=== PATIENT | female | born 1960 | race Caucasian/White ===

== ENCOUNTER 2018-02-13 22:44 | Emergency (ER) | payer MEDICAID ==
[2018-02-13 22:53] VITALS: TEMP 98.3; O2SAT 99
[2018-02-13 23:44] LABS: BASO % 0.4 % (0.0-2.0); EOS # 0.1 K/uL (0.0-0.7); EOS % 1.7 % (0.0-4.0); HEMOGLOBIN 11.9 g/dL (12.0-16.0); LYMPH # 2.6 K/uL (1.0-4.3); LYMPH % 48.4 % (20.0-40.0); MEAN CELL VOLUME 85.1 fl (81.0-99.0); MEAN CORPUSCULAR HEMOGLOBIN 28.5 pg (27.0-31.0); MEAN CORPUSCULAR HGB CONC 33.5 g/dL (33.0-37.0); MONO # 0.4 K/uL (0.0-0.8); MONO % 7.2 % (0.0-10.0); NEUT # 2.3 K/uL (1.8-7.0); NEUT % 42.3 % (50.0-75.0); NRBC % 0.1 % (0.0-0.0); RBC 4.18 Mil/uL (3.80-5.20); RED CELL DISTRIBUTION WIDTH 12.6 % (11.5-14.5); WHITE BLOOD COUNT 5.5 K/uL (4.8-10.8)
[2018-02-13 23:53] LABS: BLOOD UREA NITROGEN 11 mg/dl (7-17); CALCIUM 9.3 mg/dL (8.4-10.2); GFR AFRICAN-AMERICAN > 60; GFR NON-AFRICAN AMERICAN > 60
--- NOTE | 2018-02-13 23:57 | ED PDOC ---
HPI: Chest Pain Time Seen by Provider: 02/13/18 22:56 Chief Complaint (Nursing): Chest Pain Chief Complaint (Provider): Chest Pain History Per: Patient History/Exam Limitations: no limitations Onset/Duration Of Symptoms: Mins (30 minutes), Intermittent Episodes (x 6 months ) Current Symptoms Are (Timing): Still Present Quality: "Pain" Associated Symptoms: denies: Nausea Additional Complaint(s): 57 year old female with a history of HTN and high cholesterol presents to the ED with left sided chest pain that radiates to left arm associated with the sensation of palpations for 30 minutes. Patient is accompanied by her son. She reports intermittent episodes of similar symptoms for the last 6 months associated with feelings of anxiety and dizziness, Patient was told in the past that she has high blood pressure, but takes no medications to manage it. Upon further questioning, she states that she is in emotional distress. Patient is unwilling to admit further details. Denies shortness of breath, chills, nausea, vomiting, headache, calf tenderness, pedal edema. PMD: Dr. Raymond Rainey Past Medical History Reviewed: Historical Data, Nursing Documentation, Vital Signs Vital Signs: Last Vital Signs Temp 98.3 F 02/13/18 22:44 Pulse 90 02/13/18 23:35 Resp 17 02/13/18 23:35 BP 142/83 02/13/18 23:35 Pulse Ox 99 02/14/18 00:46 - Medical History PMH: Hypercholesterolemia - Surgical History Surgical History: No Surg Hx - Family History Family History: States: Unknown Family Hx - Social History Current smoker - smoking cessation education provided: No Alcohol: None Drugs: Denies - Allergies Allergies/Adverse Reactions: Allergies Allergy/AdvReac Type Severity Reaction Status Date / Time No Known Allergies Allergy Verified 02/13/18 22:44 Review of Systems ROS Statement: Except As Marked, All Systems Reviewed And Found Negative Constitutional: Negative for: Fever, Chills Eyes: Negative for: Vision Change Cardiovascular: Positive for: Chest Pain, Palpitations Respiratory: Negative for: Shortness of Breath Musculoskeletal: Positive for: Arm Pain (left sided; radiates from chest ) Physical Exam - Physical Exam Comments: GENERAL APPEARANCE: Patient is awake, alert, oriented x 3, in no acute distress , tearful. SKIN: Warm, dry; (-) cyanosis. EYES: (-) conjunctival pallor. ENMT: Mucous membranes moist. NECK: (-) tenderness, (-) stiffness, (-) lymphadenopathy, (-) JVD. CHEST AND RESPIRATORY: (-) rash, (-) chest wall tenderness. Lungs: (-) rales , (-) rhonchi, (-) wheezes, (-) rub; breath sounds equal bilaterally. HEART AND CARDIOVASCULAR: (-) irregularity; (-) murmur, (-) gallop, (-) rub. ABDOMEN AND GI: Soft; (-) distention, (-) tenderness, (-) palpable pulsatile mass. EXTREMITIES: (-) deformity; (-) edema, (-) calf tenderness. (+) distal pulses. NEURO AND PSYCH: Mental status as above. Cranial nerves grossly intact; strength symmetric. - Laboratory Results Result Diagrams: 02/13/18 23:30 02/13/18 23:30 - ECG O2 Sat by Pulse Oximetry: 99 (RA) Pulse Ox Interpretation: Normal Medical Decision Making Medical Decision Makin:05 Impression: chest pain, probable anxiety Initial Plan: --EKG --BMP --Troponin I --CBC --CXR --Antivert 25 mg PO --Patient was offered the opportunity to speak to crisis, which she declined. CXR: reviewed and is normal. Patient notified a Radiologist will review the ED reading if any change in treatment is needed we will contact her 0020 CBC and CMP unremarkable. Troponin < 0.01. 0050 Repeat BP: 142/83 Repeat HR: 90 On re-evaluation, patient reports improvement of symptoms. On exam, patient remains AAOx3, in no acute distress. Lungs clear to auscultation, cardiac RRR, abdomen soft, non-tender, repeat neuro exam shows no focal findings. Vitals stable. Lab/Diagnostic results d/w the patient in great detail. Diagnosis of chest pain , anxiety d/w the patient. Based on history, exam and diagnostic results, plan will be for outpatient follow up. Patient instructed to follow-up with pmd / referral provided / the clinic in 1- 2 days without fail. Advised to take medication as prescribed. Return to the emergency room at any time for any new or worsening symptoms. Patient states she fully agrees with and understands discharge instructions. States that she agrees with the plan and disposition. Verbalized and repeated discharge instructions and plan. I have given the patient opportunity to ask any additional questions. Scribe Attestation: Documented by Rachele Mercado, acting as a scribe for Katie Menendez MD Provider Scribe Attestation: All medical record entries made by the Scribe were at my direction and personally dictated by me. I have reviewed the chart and agree that the record accurately reflects my personal performance of the history, physical exam, medical decision making, and the department course for this patient. I have also personally directed, reviewed, and agree with the discharge instructions and disposition. Disposition - Clinical Impression Clinical Impression: Chest pain, Anxiety - Patient ED Disposition Is Patient to be Admitted: No Counseled Patient/Family Regarding: Studies Performed, Diagnosis, Need For Followup, Rx Given - Disposition Referrals: Raymond Rainey MD [Family Provider] - Disposition: Routine/Home Disposition Time: 00:50 Condition: STABLE Additional Instructions: La atencin mdica de emergencia que recibi hoy estaba dirigida a roro sntomas agudos. Si le prescribieron algn medicamento, llnelo y tome segn las indicaciones. Roro sntomas pueden tardar varios underwood en resolverse. Regrese al Departamento de Emergencia si roro sntomas empeoran, no mejoran o si tiene alg n otro problema. Comunquese con long mdico en 2 underwood para maday reevaluacin y seguimiento / o llame a sushma de los mdicos / clnicas a los que collier referido y que figura en el formulario de Informacin de visitas del paciente que se incluye en long paquete de nancy. Traiga todos los documentos que recibi al momento del nancy junto con los medicamentos que est tomando en long visita de seguimiento. Nuestro tratamiento no puede reemplazar la atencin mdica en curso por parte de un proveedor de atencin primaria (PCP) fuera del departamento de emergencias. Instructions: Anxiety, Adult (DC), Chest Pain That Is Not Caused by the Heart ( DC) Forms: [employer] (Omani) Print Language: EMIRATI - POA Present On Arrival: None Results - Lab Results Lab Results: 02/13/18 02/13/18 23:30 23:30 WBC 5.5 RBC 4.18 Hgb 11.9 L Hct 35.5 MCV 85.1 MCH 28.5 MCHC 33.5 RDW 12.6 Plt Count 253 MPV 8.0 Neut % (Auto) 42.3 L Lymph % (Auto) 48.4 H [place]cl[place] % (Auto) 7.2 Eos % (Auto) 1.7 Baso % (Auto) 0.4 Neut # (Auto) 2.3 Lymph # (Auto) 2.6 [place] # (Auto) 0.4 Eos # (Auto) 0.1 Baso # (Auto) 0.0 Sodium 139 Potassium 3.6 Chloride 104 Carbon Dioxide 26 Anion Gap 13 BUN 11 Creatinine 0.6 L Est GFR ( Amer) > 60 Est GFR (Non-Af Amer) > 60 Random Glucose 145 H Calcium 9.3 Troponin I < 0.0120
[2018-02-14 00:32] VITALS: BP 142/83; PULSE 90; RESP 17
--- NOTE | 2018-02-14 09:18 | CARD ---
APPROVED REPORT Date of service: 02/13/2018 <Conclusion> Normal sinus rhythm Normal ECG
--- NOTE | 2018-02-14 12:15 | RAD ---
Date of service: 02/13/2018 HISTORY: SOB, Chest Pain COMPARISON: 01/06/2017 TECHNIQUE: Chest PA and lateral FINDINGS: LUNGS: No active pulmonary disease. PLEURA: No significant pleural effusion identified. No pneumothorax apparent. CARDIOVASCULAR: Normal. OSSEOUS STRUCTURES: No significant abnormalities. VISUALIZED UPPER ABDOMEN: Normal. OTHER FINDINGS: None. IMPRESSION: No active disease.
== END 2018-02-14 00:53 | disposition home or self-care (01) ==
LOC: H.ER 22:44
DX: R07.9 Chest pain, unspecified (principal); F41.9 Anxiety disorder, unspecified; E78.00 Pure hypercholesterolemia, unspecified; I10 Essential (primary) hypertension

== ENCOUNTER 2018-02-14 03:12 | Observation (INO) | payer SELFPAY ==
[2018-02-14 05:09] LABS: BASO % 0.7 % (0.0-2.0); EOS % 0.4 % (0.0-4.0); HEMOGLOBIN 12.6 g/dL (12.0-16.0); LYMPH # 1.7 K/uL (1.0-4.3); MEAN CELL VOLUME 85.2 fl (81.0-99.0); MEAN CORPUSCULAR HEMOGLOBIN 28.7 pg (27.0-31.0); MEAN CORPUSCULAR HGB CONC 33.7 g/dL (33.0-37.0); MEAN PLATELET VOLUME 8.3 fl (7.2-11.7); MONO # 0.4 K/uL (0.0-0.8); MONO % 5.8 % (0.0-10.0); NEUT # 4.2 K/uL (1.8-7.0); NEUT % 66.1 % (50.0-75.0); RBC 4.38 Mil/uL (3.80-5.20); RED CELL DISTRIBUTION WIDTH 12.6 % (11.5-14.5); WHITE BLOOD COUNT 6.3 K/uL (4.8-10.8)
[2018-02-14 05:20] LABS: BLOOD UREA NITROGEN 11 mg/dl (7-17); CALCIUM 9.5 mg/dL (8.4-10.2); GFR AFRICAN-AMERICAN > 60; GFR NON-AFRICAN AMERICAN > 60
--- NOTE | 2018-02-14 05:31 | ED PDOC ---
HPI: Chest Pain Time Seen by Provider: 02/14/18 03:49 Chief Complaint (Nursing): Chest Pain Chief Complaint (Provider): Chest Pain History Per: Patient History/Exam Limitations: no limitations Onset/Duration Of Symptoms: Days (x 1) Current Symptoms Are (Timing): Still Present Quality: "Pain" Additional Complaint(s): 57 year old female with a history of HTN and high cholesterol presents to the ED with left sided chest pain. Patient was seen in the ED today with the same symptoms and was discharged. Offers no complaints. Denies shortness of breath, chills, nausea, vomiting, headache, calf tenderness, pedal edema. PMD: Dr. Rainey Past Medical History Reviewed: Historical Data, Nursing Documentation, Vital Signs Vital Signs: Last Vital Signs Temp 97.9 F 02/15/18 00:23 Pulse 85 02/15/18 00:23 Resp 18 02/15/18 00:23 BP 134/77 02/15/18 00:23 Pulse Ox 98 02/15/18 00:23 - Medical History PMH: Anxiety, Hypercholesterolemia - Surgical History Surgical History: No Surg Hx - Family History Family History: States: Unknown Family Hx - Home Medications Home Medications: Ambulatory Orders Medication Instructions Recorded Acetaminophen/Oxycodone Hydr 1 tab PO Q6 PRN 02/14/18 [Percocet 10/325 mg Tab] Alprazolam [Xanax] 0.5 mg PO PRN PRN 02/14/18 - Allergies Allergies/Adverse Reactions: Allergies Allergy/AdvReac Type Severity Reaction Status Date / Time No Known Allergies Allergy Verified 02/13/18 22:44 DERRICK Risk Score for UA/NSTEMI - DERRICK Risk Score Age > 64: NO 3 or more CAD Risk Factors: NO Known CAD (Stenosis greater than 50%): NO Aspirin use in past 7 days: NO Severe Angina: YES EKG ST changes greater than 0.5mm: NO Positive Cardiac Marker: NO DERRICK Score: 1 Risk %: 5% Wells Criteria for PE - Wells Criteria for Pulmonary Embolism Clinical Signs and Symptoms of DVT: No P.E is #1 Diagnosis, or Equally Likely: No Heart Rate >100: No Immobilization at least 3 days;Surgery previous 4 weeks: No Previous, objectively diagnosed PE or DVT: No Hemoptysis: No Malignancy w/treatment within 6 months, or palliative: No Total Score: 0 Review of Systems ROS Statement: Except As Marked, All Systems Reviewed And Found Negative Cardiovascular: Positive for: Chest Pain Physical Exam - Reviewed Nursing Documentation Reviewed: Yes Vital Signs Reviewed: Yes - Physical Exam Appears: Positive for: Non-toxic, No Acute Distress Head Exam: Positive for: ATRAUMATIC, NORMAL INSPECTION, NORMOCEPHALIC Skin: Positive for: Normal Color, Warm, Dry Eye Exam: Positive for: EOMI, Normal appearance, PERRL Neck: Positive for: Normal, Painless ROM, Supple Cardiovascular/Chest: Positive for: Regular Rate, Rhythm. Negative for: Murmur Respiratory: Positive for: Normal Breath Sounds. Negative for: Wheezing, Respiratory Distress Gastrointestinal/Abdominal: Positive for: Normal Exam, Soft. Negative for: Tenderness Extremity: Positive for: Normal ROM. Negative for: Deformity Neurologic/Psych: Positive for: Alert, Oriented (x 3]). Negative for: Motor/ Sensory Deficits - Laboratory Results Result Diagrams: 02/14/18 10:25 02/14/18 11:50 - ECG ECG: Positive for: Interpreted By Me, Viewed By Me ECG Rhythm: Positive for: Normal QRS, Normal ST Segment, Sinus Rhythm, Nonspecific Changes O2 Sat by Pulse Oximetry: 100 Medical Decision Making Medical Decision Makin:33 Impression: Initial Plan: --EKG --BMP --Troponin I --CBC --ASA 325 mg PO --Xanax .25mg PO EKG: NSR, normal QRS, no ST changes rate 84. Scribe Attestation: Documented by Rachele Mercado, acting as a scribe for Antonia Russell PA-C Provider Scribe Attestation: All medical record entries made by the Scribe were at my direction and personally dictated by me. I have reviewed the chart and agree that the record accurately reflects my personal performance of the history, physical exam, medical decision making, and the department course for this patient. I have also personally directed, reviewed, and agree with the discharge instructions and disposition. Disposition - Clinical Impression Clinical Impression: Chest pain, Anxiety - Patient ED Disposition Is Patient to be Admitted: Yes Discussed With : Raymond Rainey Doctor Will See Patient In The: Hospital Counseled Patient/Family Regarding: Studies Performed, Diagnosis - Disposition Disposition Time: 04:30 Condition: FAIR - Pt Status Changed To: Hospital Disposition Of: Observation - POA Present On Arrival: None
--- NOTE | 2018-02-14 09:15 | CARD ---
APPROVED REPORT Date of service: 02/14/2018 <Conclusion> Normal sinus rhythm with sinus arrhythmia Nonspecific ST and T wave abnormality Abnormal ECG
[2018-02-14 10:47] LABS: HEMOGLOBIN 12.7 g/dL (12.0-16.0); MEAN CELL VOLUME 84.5 fl (81.0-99.0); MEAN CORPUSCULAR HEMOGLOBIN 28.5 pg (27.0-31.0); MEAN CORPUSCULAR HGB CONC 33.7 g/dL (33.0-37.0); RBC 4.45 Mil/uL (3.80-5.20); RED CELL DISTRIBUTION WIDTH 12.8 % (11.5-14.5); WHITE BLOOD COUNT 6.1 K/uL (4.8-10.8)
[2018-02-14 12:14] LABS: LDL CHOLESTEROL 48 mg/dL (0-129)
[2018-02-14 12:15] LABS: ALB/GLOB RATIO 1.1 (1.0-2.1); ALBUMIN 3.7 g/dL (3.5-5.0); ALT/SGPT 26 U/L (9-52); AST/SGOT 29 U/L (14-36); BLOOD UREA NITROGEN 8 mg/dl (7-17); CALCIUM 9.6 mg/dL (8.4-10.2); GFR AFRICAN-AMERICAN > 60; GFR NON-AFRICAN AMERICAN > 60; HDL CHOLESTEROL 39 MG/DL (30-70)
[2018-02-14 12:24] LABS: T4 6.97 ug/dl (5.5-11.0)
[2018-02-14 12:37] LABS: T3 1.05 nmol/L (1.49-2.60)
--- NOTE | 2018-02-14 13:11 | CT ---
Date of service: 02/14/2018 PROCEDURE: CT HEAD WITHOUT CONTRAST. HISTORY: Dizziness COMPARISON: 01/30/2012 TECHNIQUE: Axial computed tomography images were obtained through the head/brain without intravenous contrast. Radiation dose: Total exam DLP = 713.89 mGy-cm. This CT exam was performed using one or more of the following dose reduction techniques: Automated exposure control, adjustment of the mA and/or kV according to patient size, and/or use of iterative reconstruction technique. FINDINGS: HEMORRHAGE: No intracranial hemorrhage. BRAIN: No mass effect or edema. No atrophy. Mild chronic periventricular white matter lucency with patchy deep/subcortical white matter lucency consistent with microvascular ischemic change. No evidence of acute infarct. VENTRICLES: Unremarkable. No hydrocephalus. CALVARIUM: Unremarkable. PARANASAL SINUSES: Unremarkable as visualized. No significant inflammatory changes. MASTOID AIR CELLS: Unremarkable as visualized. No inflammatory changes. OTHER FINDINGS: None. IMPRESSION: No intracranial mass, hemorrhage or evidence of acute infarct. Mild chronic white matter ischemic change. Otherwise unremarkable.
--- NOTE | 2018-02-14 15:44 | CP.PCM.HP ---
History of Present Illness - History of Present Illness History of Present Illness: CC: Chest pain. 57 y/o F, PMHx HTN, Dyslipidemia, Anxiety, [facility], onset day [employer] with no relief. As per records, Pt was seen in the ER yesterday818, night c/o of same symptoms chest pain, dizziness, palpitations , She was discharged on Antivert and today she returned with persistent and increased chest pain chest pain, Left sided, described as continue, crushing, pressure type, associated to palpitations, dizziness, non radiated. Worsening symptoms: Increased anxiety with the pain, intermittent episodes of CP for the last 6 months. Aggravated factor: movement, back pain radiated to LUQ also radiated to LLE Pt denied: Fever, chills n/v/d, abdominal pain, urinary symptoms,palpitations, syncope, LOC, numbness, SOB, cough, sick contact, recent travel out of [facility]. CXR was normal. Head CT: No mass, hemorrhage or acute infarction. EKG: Normal sinus rhythm with sinus arrhythmia. Present on Admission - Present on Admission Any Indicators Present on Admission: No Review of Systems - Constitutional Constitutional: Other (negative) - EENT Eyes: Other (negative) Ears: Other (negative) Nose/Mouth/Throat: Other (negative) - Cardiovascular Cardiovascular: Chest Pain - Respiratory Respiratory: Other (negative) - Gastrointestinal Gastrointestinal: Other (negative) - Genitourinary Genitourinary: Other (negative) - Musculoskeletal Musculoskeletal: Back Pain - Integumentary Integumentary: Other (negative) - Neurological Neurological: Dizziness - Psychiatric Psychiatric: Anxiety - Endocrine Endocrine: Other (negative) - Hematologic/Lymphatic Hematologic: Other (negative) Past Patient History - Past Medical History & Family History Pertinent Family History: Unknown - Past Social History Smoking Status: Never Smoked Alcohol: None Drugs: Denies Home Situation {Lives}: Alone - CARDIAC Hx Cardiac Disorders: Yes Hx Hypercholesterolemia: Yes Hx Hypertension: Yes - PULMONARY Hx Respiratory Disorders: No - NEUROLOGICAL Hx Neurological Disorder: No - HEENT Hx HEENT Problems: No - RENAL Hx Chronic Kidney Disease: No - ENDOCRINE/METABOLIC Hx Endocrine Disorders: No - HEMATOLOGICAL/ONCOLOGICAL Hx Blood Disorders: No - INTEGUMENTARY Hx Dermatological Problems: No - MUSCULOSKELETAL/RHEUMATOLOGICAL Hx Musculoskeletal Disorders: Yes Hx Falls: No Other/Comment: Lumbago with LLE radiculopathy - GASTROINTESTINAL Hx Gastrointestinal Disorders: No - GENITOURINARY/GYNECOLOGICAL Hx Genitourinary Disorders: No - PSYCHIATRIC Hx Psychophysiologic Disorder: Yes Hx Anxiety: Yes Hx Substance Use: No - SURGICAL HISTORY Hx Surgeries: No - ANESTHESIA Hx Anesthesia: No Meds Allergies/Adverse Reactions: Allergies Allergy/AdvReac Type Severity Reaction Status Date / Time No Known Allergies Allergy Verified 02/13/18 22:44 Physical Exam - Constitutional Appears: No Acute Distress - Head Exam Head Exam: NORMAL INSPECTION - Eye Exam Eye Exam: PERRL - ENT Exam ENT Exam: Normal Oropharynx - Neck Exam Neck exam: Positive for: Normal Inspection - Respiratory Exam Respiratory Exam: NORMAL BREATHING PATTERN - Cardiovascular Exam Cardiovascular Exam: REGULAR RHYTHM - GI/Abdominal Exam GI & Abdominal Exam: Normal Bowel Sounds, Soft - Extremities Exam Extremities exam: Positive for: normal inspection - Back Exam Back exam: NORMAL INSPECTION, tenderness Additional comments: radiated to LLE - Neurological Exam Neurological exam: Alert, Oriented x3 Additional comments: No motor/sensory deficit. - Psychiatric Exam Psychiatric exam: Anxious - Skin Skin Exam: Warm Results - Vital Signs Recent Vital Signs: Last Vital Signs Temp 98.3 F 02/14/18 12:00 Pulse 87 02/14/18 12:00 Resp 16 02/14/18 12:00 BP 133/84 02/14/18 12:00 Pulse Ox 97 02/14/18 12:00 reviewed Torin - Labs Result Diagrams: 02/14/18 10:25 02/14/18 11:50 Labs: Laboratory Results - last 24 hr 02/14/18 02/14/18 02/14/18 05:06 05:06 10:25 WBC 6.3 6.1 RBC 4.38 4.45 Hgb 12.6 12.7 Hct 37.3 37.6 MCV 85.2 84.5 MCH 28.7 28.5 MCHC 33.7 33.7 RDW 12.6 12.8 Plt Count 261 260 MPV 8.3 Neut % (Auto) 66.1 Lymph % (Auto) 27.0 [place] % (Auto) 5.8 Eos % (Auto) 0.4 Baso % (Auto) 0.7 Neut # (Auto) 4.2 Lymph # (Auto) 1.7 [place] # (Auto) 0.4 Eos # (Auto) 0.0 Baso # (Auto) 0.0 Sodium 139 Potassium 4.3 Chloride 105 Carbon Dioxide 25 Anion Gap 13 BUN 11 Creatinine 0.6 L Est GFR ( Amer) > 60 Est GFR (Non-Af Amer) > 60 Random Glucose 175 H Calcium 9.5 Total Bilirubin AST ALT Alkaline Phosphatase Troponin I < 0.0120 Total Protein Albumin Globulin Albumin/Globulin Ratio Triglycerides Cholesterol LDL Cholesterol Direct HDL Cholesterol Thyroxine (T4) Total T3 TSH 3rd Generation 02/14/18 11:50 WBC RBC Hgb Hct MCV MCH MCHC RDW Plt Count MPV Neut % (Auto) Lymph % (Auto) [place] % (Auto) Eos % (Auto) Baso % (Auto) Neut # (Auto) Lymph # (Auto) [place] # (Auto) Eos # (Auto) Baso # (Auto) Sodium 139 Potassium 3.7 Chloride 107 Carbon Dioxide 26 Anion Gap 10 BUN 8 Creatinine 0.6 L Est GFR ( Amer) > 60 Est GFR (Non-Af Amer) > 60 Random Glucose 157 H Calcium 9.6 Total Bilirubin 0.4 AST 29 ALT 26 Alkaline Phosphatase 101 Troponin I < 0.0120 Total Protein 7.1 Albumin 3.7 Globulin 3.3 Albumin/Globulin Ratio 1.1 Triglycerides 823 H D Cholesterol 415 H LDL Cholesterol Direct 48 HDL Cholesterol 39 Thyroxine (T4) 6.97 Total T3 1.05 L TSH 3rd Generation 0.40 L reviewed J.P. - EKG Data EKG comments: reviewed J.P. - Imaging and Cardiology Chest x-ray Status: Report reviewed by me (J.P.) CT scan - head Status: Report reviewed by me (J.P.) Assessment & Plan (1) Chest pain Status: Acute Priority: High (2) Anxiety Status: Chronic Priority: High (3) Lumbago with sciatica, left side Status: Chronic - Assessment and Plan (Free Text) Plan: F/U Echo, continue with Percocet, Meclizine, Xanax and rest of Tx, CT L-S spine, Cardiology consult.
--- NOTE | 2018-02-14 17:21 | CT ---
Date of service: 02/14/2018 PROCEDURE: CT Lumbar Spine without contrast HISTORY: Back pain COMPARISON: None available. TECHNIQUE: Axial computed tomography images were obtained of the lumbar spine without the use of intravenous contrast. Coronal and sagittal reformatted images were created and reviewed. Radiation dose: Total exam DLP = 373.39 mGy-cm. This CT exam was performed using one or more of the following dose reduction techniques: Automated exposure control, adjustment of the mA and/or kV according to patient size, and/or use of iterative reconstruction technique. FINDINGS: VERTEBRAE: The vertebral bodies are maintained in height. The transverse processes and posterior elements are intact. There is minimal dextroscoliotic curvature of the lumbar spine. There is no lytic or blastic osseous lesion. DISCS/SPINAL CANAL/NEURAL FORAMINA: L1-2: Unremarkable. L2-3: Minimal disc bulge. No spinal or foraminal stenosis. L3-4: Mild disc bulge. No spinal or foraminal stenosis. No focal disc herniation. L4-5: Mild disc bulge. No focal disc herniation. No spinal stenosis. Mild right L4-5 foraminal stenosis due to degenerative facet hypertrophy and mild osteophyte formation. . L5-S1: Unremarkable. PARASPINAL SOFT TISSUES: Unremarkable. OTHER FINDINGS: None. IMPRESSION: No fracture/ dislocation. Disc bulge L2-3 through L4-5. No focal herniation. Mild right L4-5 neural foraminal stenosis.
[2018-02-14] MEDS: Oxycodone/Acetaminophen 5/325 mg Tab PO PRN (17:53)
[2018-02-15] MEDS: Oxycodone/Acetaminophen 5/325 mg Tab PO PRN (01:51)
--- NOTE | 2018-02-15 14:59 | CP.PCM.PN ---
Subjective - Date & Time of Evaluation Date of Evaluation: 02/15/18 Time of Evaluation: 11:30 - Subjective Subjective: F/U CP Objective - Vital Signs/Intake and Output Vital Signs (last 24 hours): Temp Pulse Resp BP Pulse Ox 98.3 F 79 18 130/81 98 02/15/18 12:07 02/15/18 12:07 02/15/18 12:07 02/15/18 12:07 02/15/18 12:07 - Medications Medications: Current Medications Alprazolam (Xanax) 0.25 mg PO Q12 PRN PRN Reason: Anxiety Stop: 02/21/18 11:36 Last Admin: 02/14/18 22:15 Dose: 0.25 mg Meclizine HCl (Antivert) 25 mg PO Q8 KERRY Last Admin: 02/15/18 09:14 Dose: 25 mg Oxycodone/Acetaminophen (Percocet 5/325 Mg Tab) 1 tab PO Q8 PRN PRN Reason: Pain, severe (8-10) Stop: 02/17/18 11:46 Last Admin: 02/15/18 01:51 Dose: 1 tab - Labs Labs: 02/14/18 10:25 02/14/18 11:50 - Constitutional Appears: No Acute Distress - Head Exam Head Exam: NORMAL INSPECTION - Eye Exam Eye Exam: PERRL - ENT Exam ENT Exam: Normal Exam - Neck Exam Neck Exam: Normal Inspection - Respiratory Exam Respiratory Exam: NORMAL BREATHING PATTERN - Cardiovascular Exam Cardiovascular Exam: REGULAR RHYTHM - GI/Abdominal Exam GI & Abdominal Exam: Soft, Normal Bowel Sounds - Extremities Exam Extremities Exam: Normal Inspection - Back Exam Back Exam: tenderness Additional comments: radiated to LLE - Neurological Exam Neurological Exam: Alert, Oriented x3. absent: Motor Sensory Deficit - Psychiatric Exam Psychiatric exam: Anxious - Skin Skin Exam: Warm Assessment and Plan (1) Chest pain Status: Acute (2) Anxiety Status: Chronic (3) Lumbago with sciatica, left side Status: Chronic
--- NOTE | 2018-02-15 15:33 | CARD ---
APPROVED REPORT Date of service: 02/15/2018 EXAM: Two-dimensional and M-mode echocardiogram with Doppler and color Doppler. Other Information Quality : AverageRhythm : NSR INDICATION Chest Pain 2D DIMENSIONS IVSd0.80 (0.7-1.1cm)LVDd3.89 (3.9-5.9cm) LVOT Diameter1.98 (1.8-2.4cm)PWd0.72 (0.7-1.1cm) IVSs1.34 (0.8-1.2cm)LVDs2.54 (2.5-4.0cm) FS (%) 34.7 %PWs1.40 (0.8-1.2cm) M-Mode DIMENSIONS Left Atrium (MM)3.26 (2.5-4.0cm)IVSd0.71 (0.7-1.1cm) Aortic Root3.26 (2.2-3.7cm)LVDd5.29 (4.0-5.6cm) Aortic Cusp Exc.1.82 (1.5-2.0cm)PWd1.12 (0.7-1.1cm) IVSs1.15 cmFS (%) 39 % LVDs3.24 (2.0-3.8cm)PWs1.26 cm Aortic Valve AoV Peak Yeymvfkp019.0cm/sAoV VTI23.1cmAO Peak GR.5mmHg LVOT Peak Klypgqza19.4cm/sLVOT VTI16.35cmAO Mean GR.3mmHg Mitral Valve MV E Qbpacvun30.4cm/sMV DECEL [id number] A Cyzabqbk45.3cm/s MV FON91tqO/A ratio1.0MVA (PHT)4.91cm2 TDI Lateral E' Peak V12.14cm/sMedial E' Peak V6.52cm/sE/Lateral E'6.0 E/Medial E'11.1 LEFT VENTRICLE The left ventricle is normal size. There is normal left ventricular wall thickness. The left ventricular ejection fraction is within the normal range. The Ejection Fraction is 60-65%. No regional wall motion abnormalities noted.. The left ventricular diastolic function is normal. No left ventricle thrombus noted on this study. There is no ventricular septal defect visualized. There is no mass noted in the left ventricle. RIGHT VENTRICLE The right ventricle is normal size. There is normal right ventricular wall thickness. The right ventricular systolic function is normal. ATRIA The left atrium size is normal. The right atrium size is normal. The interatrial septum is intact with no evidence for an atrial septal defect. AORTIC VALVE The aortic valve is normal in structure. No aortic regurgitation is present. There is no aortic valvular stenosis. MITRAL VALVE The mitral valve is normal in structure. There is no mitral valve stenosis. There is no mitral valve regurgitation noted. TRICUSPID VALVE The tricuspid valve is normal in structure. There is no tricuspid valve regurgitation noted. PULMONIC VALVE The pulmonary valve is not seen There is no gross pulmonic valvular regurgitation. GREAT VESSELS The aortic root is normal in size. The ascending aorta is normal in size. The pulmonary artery is not seen The IVC is normal in size and collapses >50% with inspiration. PERICARDIAL EFFUSION There is no pericardial effusion. <Conclusion> Poor parasternal short axis views Grossly normal transthoracic echocardiogram. The Ejection Fraction is 60-65%.
--- NOTE | 2018-02-15 15:37 | CP.PCM.CON ---
Past Patient History - Past Social History Smoking Status: Never Smoked Alcohol: None Drugs: Denies Home Situation {Lives}: Alone - CARDIAC Hx Cardiac Disorders: Yes Hx Hypercholesterolemia: Yes Hx Hypertension: Yes - PULMONARY Hx Respiratory Disorders: No - NEUROLOGICAL Hx Neurological Disorder: No - HEENT Hx HEENT Problems: No - RENAL Hx Chronic Kidney Disease: No - ENDOCRINE/METABOLIC Hx Endocrine Disorders: No - HEMATOLOGICAL/ONCOLOGICAL Hx Blood Disorders: No - INTEGUMENTARY Hx Dermatological Problems: No - MUSCULOSKELETAL/RHEUMATOLOGICAL Hx Musculoskeletal Disorders: Yes Hx Falls: No Other/Comment: Lumbago with LLE radiculopathy - GASTROINTESTINAL Hx Gastrointestinal Disorders: No - GENITOURINARY/GYNECOLOGICAL Hx Genitourinary Disorders: No - PSYCHIATRIC Hx Psychophysiologic Disorder: Yes Hx Anxiety: Yes Hx Substance Use: No - SURGICAL HISTORY Hx Surgeries: No - ANESTHESIA Hx Anesthesia: No Meds Home Medications: Home Medication List Medication Instructions Recorded Confirmed Type Aspirin 81 mg PO DAILY #30 tab.chew 02/15/18 Rx Atorvastatin [Lipitor] 40 mg PO DAILY #30 tab 02/15/18 Rx Meclizine [Meclizine*] 25 mg PO Q8 PRN #30 tab 02/15/18 Rx Meclizine [Meclizine*] 25 mg PO Q8 PRN #90 tab 02/15/18 Rx Allergies/Adverse Reactions: Allergies Allergy/AdvReac Type Severity Reaction Status Date / Time No Known Allergies Allergy Verified 02/13/18 22:44 - Medications Medications: Current Medications Alprazolam (Xanax) 0.25 mg PO Q12 PRN PRN Reason: Anxiety Stop: 02/21/18 11:36 Last Admin: 02/14/18 22:15 Dose: 0.25 mg Meclizine HCl (Antivert) 25 mg PO Q8 KERRY Last Admin: 02/15/18 09:14 Dose: 25 mg Oxycodone/Acetaminophen (Percocet 5/325 Mg Tab) 1 tab PO Q8 PRN PRN Reason: Pain, severe (8-10) Stop: 02/17/18 11:46 Last Admin: 02/15/18 01:51 Dose: 1 tab Results - Vital Signs Recent Vital Signs: Last Vital Signs Temp 98.3 F 02/15/18 12:07 Pulse 79 02/15/18 12:07 Resp 18 02/15/18 12:07 BP 130/81 08/20/18 12:07 Pulse Ox 98 02/15/18 12:07 - Labs Result Diagrams: 02/14/18 10:25 02/14/18 11:50 Labs: Laboratory Results - last 24 hr 02/14/18 18:30 Troponin I < 0.0120
[2018-02-15 15:50] VITALS: BP 129/84; PULSE 77; RESP 20; TEMP 98.7; O2SAT 99
--- NOTE | 2018-02-15 16:47 | CP.PCM.DIS ---
Provider - Provider Date of Admission: 02/14/18 04:33 Attending physician: Raymond Rainey MD Diagnosis - Discharge Diagnosis (1) Chest pain Status: Acute Priority: High (2) Anxiety Status: Chronic Priority: High (3) Lumbago with sciatica, left side Status: Chronic Hospital Course - Lab Results Lab Results: Most Recent Lab Values WBC 6.1 K/uL (4.8-10.8) 02/14/18 10:25 RBC 4.45 Mil/uL (3.80-5.20) 02/14/18 10:25 Hgb 12.7 g/dL (12.0-16.0) 02/14/18 10:25 Hct 37.6 % (34.0-47.0) 02/14/18 10:25 MCV 84.5 fl (81.0-99.0) 02/14/18 10:25 MCH 28.5 pg (27.0-31.0) 02/14/18 10:25 MCHC 33.7 g/dL (33.0-37.0) 02/14/18 10:25 RDW 12.8 % (11.5-14.5) 02/14/18 10:25 Plt Count 260 K/uL (130-400) 02/14/18 10:25 MPV 8.3 fl (7.2-11.7) 02/14/18 05:06 Neut % (Auto) 66.1 % (50.0-75.0) 02/14/18 05:06 Lymph % (Auto) 27.0 % (20.0-40.0) 02/14/18 05:06 [place] % (Auto) 5.8 % (0.0-10.0) 02/14/18 05:06 Eos % (Auto) 0.4 % (0.0-4.0) 02/14/18 05:06 Baso % (Auto) 0.7 % (0.0-2.0) 02/14/18 05:06 Neut # (Auto) 4.2 K/uL (1.8-7.0) 02/14/18 05:06 Lymph # (Auto) 1.7 K/uL (1.0-4.3) 02/14/18 05:06 [place] # (Auto) 0.4 K/uL (0.0-0.8) 02/14/18 05:06 Eos # (Auto) 0.0 K/uL (0.0-0.7) 02/14/18 05:06 Baso # (Auto) 0.0 K/uL (0.0-0.2) 02/14/18 05:06 Sodium 139 mmol/l (132-148) 02/14/18 11:50 Potassium 3.7 MMOL/L (3.6-5.0) 02/14/18 11:50 Chloride 107 mmol/L (98-107) 02/14/18 11:50 Carbon Dioxide 26 mmol/L (22-30) 02/14/18 11:50 Anion Gap 10 (10-20) 02/14/18 11:50 BUN 8 mg/dl (7-17) 02/14/18 11:50 Creatinine 0.6 mg/dl (0.7-1.2) L 02/14/18 11:50 Est GFR ( Amer) > 60 02/14/18 11:50 Est GFR (Non-Af Amer) > 60 02/14/18 11:50 Random Glucose 157 mg/dL (65-105) H 02/14/18 11:50 Calcium 9.6 mg/dL (8.4-10.2) 02/14/18 11:50 Total Bilirubin 0.4 mg/dl (0.2-1.3) 02/14/18 11:50 AST 29 U/L (14-36) 02/14/18 11:50 ALT 26 U/L (9-52) 02/14/18 11:50 Alkaline Phosphatase 101 U/L (38-126) 02/14/18 11:50 Troponin I < 0.0120 ng/mL (0.00-0.120) 02/14/18 18:30 Total Protein 7.1 G/DL (6.3-8.2) 02/14/18 11:50 Albumin 3.7 g/dL (3.5-5.0) 02/14/18 11:50 Globulin 3.3 gm/dL (2.2-3.9) 02/14/18 11:50 Albumin/Globulin Ratio 1.1 (1.0-2.1) 02/14/18 11:50 Triglycerides 823 mg/DL (0-149) H D 02/14/18 11:50 Cholesterol 415 mg/dL (0-199) H 02/14/18 11:50 LDL Cholesterol Direct 48 mg/dL (0-129) 02/14/18 11:50 HDL Cholesterol 39 MG/DL (30-70) 02/14/18 11:50 Thyroxine (T4) 6.97 ug/dl (5.5-11.0) 02/14/18 11:50 Total T3 1.05 nmol/L (1.49-2.60) L 02/14/18 11:50 TSH 3rd Generation 0.40 mIU/ML (0.46-4.68) L 02/14/18 11:50 Discharge Exam - Head Exam Head Exam: NORMAL INSPECTION Discharge Plan - Discharge Medications Prescriptions: Aspirin 81 mg PO DAILY #30 tab.chew Atorvastatin [Lipitor] 40 mg PO DAILY #30 tab Meclizine [Meclizine*] 25 mg PO Q8 PRN #90 tab PRN Reason: Anxiety Meclizine [Meclizine*] 25 mg PO Q8 PRN #30 tab PRN Reason: Dizziness - Follow Up Plan Condition: FAIR Disposition: HOME/ ROUTINE Instructions: Chest Pain (DC) Additional Instructions: follow up with pmd in 1week follow up with dr islas in 1 week Referrals: Jericho Islas MD [Staff Provider] - Raymond Rainey MD [Staff Provider] -
== END 2018-02-15 15:40 | disposition home or self-care (01) ==
LOC: H.ER 03:12 → H.ERHOLD 04:33 → H.TEL 07:01
PROVIDERS: ADMIT Internal Medicine Pulmonary Disease; ATTEND Internal Medicine Pulmonary Disease
DX: R07.89 Other chest pain (principal); E78.00 Pure hypercholesterolemia, unspecified; E78.5 Hyperlipidemia, unspecified; F41.9 Anxiety disorder, unspecified; I10 Essential (primary) hypertension; M54.10 Radiculopathy, site unspecified; M54.42 Lumbago with sciatica, left side; Z79.82 Long term (current) use of aspirin; Z79.899 Other long term (current) drug therapy; F45.9 Somatoform disorder, unspecified; R00.2 Palpitations; R05 Cough; R06.02 Shortness of breath; R10.9 Unspecified abdominal pain; R11.2 Nausea with vomiting, unspecified
CPT/HCPCS: 70450; 72131; 80053; 80061; 84436; 84443; 84480; 84484; 85025; 85027; 93005; 93306; 99284; G0378

== ENCOUNTER 2018-08-24 19:52 | Emergency (ER) | payer MEDICAID ==
[2018-08-24 19:52] VITALS: BMI 24.1
[2018-08-24 20:02] VITALS: O2SAT 99
--- NOTE | 2018-08-24 20:53 | ED PDOC ---
HPI: Chest Pain Time Seen by Provider: 08/24/18 20:27 Chief Complaint (Nursing): Chest Pain Chief Complaint (Provider): chest pain History Per: Patient History/Exam Limitations: no limitations Onset/Duration Of Symptoms: Days (3 weeks) Current Symptoms Are (Timing): Still Present Quality: "Pain" Exacerbating Factors: Movement Additional Complaint(s): 57 y/o female presents for evaluation of left-sided chest pain x 3 weeks. Patient states pain started in left arm and travels to left side of chest next to arm. Patient states pain worse with movement. 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 Denies fever, headache, dizziness, extremity numbness/weakness, shortness of breath, palpitations, leg pain/swelling. Patient was evaluated by her PMD for same and sent for left shoulder xray and has follow up appt next week. 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 Past Medical History Reviewed: Historical Data, Nursing Documentation, Vital Signs Vital Signs: Last Vital Signs Temp 97.9 F 08/24/18 19:59 Pulse 97 H 08/24/18 19:59 Resp 16 08/24/18 19:59 BP 138/82 08/24/18 19:59 Pulse Ox 99 08/24/18 19:59 - Medical History PMH: Anxiety, Arthritis, HTN, Hypercholesterolemia Denies: Chronic Kidney Disease - Surgical History Surgical History: - Family History Family History: States: Unknown Family Hx - Home Medications Home Medications: Ambulatory Orders Medication Instructions Recorded Atorvastatin [Lipitor] 40 mg PO DAILY 01/12/17 oxyCODONE [oxyCODONE Immediate 5 mg PO PRN PRN 01/12/17 Release Tab] Acetaminophen/Oxycodone Hydr 1 tab PO Q6 PRN 02/14/18 [Percocet 10/325 mg Tab] Alprazolam [Xanax] 0.5 mg PO PRN PRN 02/14/18 Aspirin 81 mg PO DAILY #30 tab.chew 02/15/18 Atorvastatin [Lipitor] 40 mg PO DAILY #30 tab 02/15/18 Meclizine [Meclizine*] 25 mg PO Q8 PRN #30 tab 02/15/18 Meclizine [Meclizine*] 25 mg PO Q8 PRN #90 tab 02/15/18 Naproxen [Naprosyn] 500 mg PO Q12 PRN #14 tablet 08/24/18 - Allergies Allergies/Adverse Reactions: Allergies Allergy/AdvReac Type Severity Reaction Status Date / Time No Known Allergies Allergy Verified 08/24/18 19:59 Review of Systems ROS Statement: Except As Marked, All Systems Reviewed And Found Negative Cardiovascular: Positive for: Chest Pain Musculoskeletal: Positive for: Shoulder Pain, Arm Pain Physical Exam - Reviewed Nursing Documentation Reviewed: Yes Vital Signs Reviewed: Yes - Physical Exam Appears: Positive for: Well, Non-toxic, No Acute Distress Head Exam: Positive for: ATRAUMATIC, NORMAL INSPECTION, NORMOCEPHALIC Skin: Positive for: Normal Color Eye Exam: Positive for: Normal appearance ENT: Positive for: Normal ENT Inspection Cardiovascular/Chest: Positive for: Regular Rate, Rhythm. Negative for: Chest Non Tender (tender to palpate lateral aspect left anterior chest wall. Pain produced with abduction and external rotation left upper extremity) Respiratory: Positive for: Normal Breath Sounds Gastrointestinal/Abdominal: Positive for: Normal Exam Back: Positive for: Normal Inspection Extremity: Positive for: Normal ROM Neurologic/Psych: Positive for: Alert, Oriented (x3) - Laboratory Results Result Diagrams: 08/24/18 21:21 08/24/18 21:21 - ECG ECG: Positive for: Viewed By Me (reviewed by ED attending) ECG Rhythm: Positive for: Sinus Rhythm O2 Sat by Pulse Oximetry: 99 - Radiology X-Ray: Viewed By Me X-Ray Interpretation: No Acute Disease - Progress ED Course And Treament: -cbc -cmp -troponin -cxr -ekg -monitoring analyst -IV toradol On re-eval, patient resting comfortably; states pain resolved Case discussed with Dr. Rainey, who agrees with plan to discharge PAtient educated on findings, discharged with rx Naproxen Advised warm compresses Follow up PMD/Cardio as scheduled Return precautions given Disposition - Clinical Impression Clinical Impression: Chest wall pain - Patient ED Disposition Is Patient to be Admitted: No Counseled Patient/Family Regarding: Studies Performed, Diagnosis, Need For Followup, Rx Given - Disposition Disposition: Routine/Home Disposition Time: 23:00 Condition: IMPROVED Prescriptions: Naproxen [Naprosyn] 500 mg PO Q12 PRN #14 tablet PRN Reason: Pain, Moderate (4-7) Instructions: Chest Pain That Is Not Caused by the Heart (DC) Forms: Qello (Cameroonian)
[2018-08-24 21:28] LABS: BASO % 0.3 % (0.0-2.0); EOS # 0.1 K/uL (0.0-0.7); EOS % 1.1 % (0.0-4.0); HEMOGLOBIN 12.3 g/dL (12.0-16.0); LYMPH # 3.2 K/uL (1.0-4.3); LYMPH % 51.7 % (20.0-40.0); MEAN CELL VOLUME 85.3 fl (81.0-99.0); MEAN CORPUSCULAR HEMOGLOBIN 28.1 pg (27.0-31.0); MEAN PLATELET VOLUME 8.3 fl (7.2-11.7); MONO # 0.4 K/uL (0.0-0.8); MONO % 6.1 % (0.0-10.0); NEUT # 2.5 K/uL (1.8-7.0); NEUT % 40.8 % (50.0-75.0); RBC 4.36 Mil/uL (3.80-5.20); RED CELL DISTRIBUTION WIDTH 12.8 % (11.5-14.5); WHITE BLOOD COUNT 6.1 K/uL (4.8-10.8)
[2018-08-24 21:53] LABS: ALBUMIN 3.4 g/dL (3.5-5.0); ALT/SGPT 32 U/L (9-52); AST/SGOT 23 U/L (14-36); BLOOD UREA NITROGEN 13 mg/dl (7-17); CALCIUM 9.3 mg/dL (8.4-10.2); GFR NON-AFRICAN AMERICAN > 60
[2018-08-25 00:34] VITALS: BP 137/94; PULSE 77; RESP 18; TEMP 98.2
--- NOTE | 2018-08-25 10:21 | CARD ---
APPROVED REPORT Date of service: 08/24/2018 EKG Measurement Heart [id number] <Conclusion> Normal sinus rhythm Normal ECG
--- NOTE | 2018-08-25 10:27 | RAD ---
Date of service: 08/24/2018 HISTORY: chest pain COMPARISON: 02/13/2018 TECHNIQUE: Chest PA and lateral FINDINGS: LUNGS: No active pulmonary disease. PLEURA: No significant pleural effusion identified. No pneumothorax apparent. CARDIOVASCULAR: No aortic atherosclerotic calcification present. Normal cardiac size. No pulmonary vascular congestion. OSSEOUS STRUCTURES: No significant abnormalities. VISUALIZED UPPER ABDOMEN: Normal. OTHER FINDINGS: None. IMPRESSION: No active disease. No interval pathology noted.
== END 2018-08-24 23:35 | disposition home or self-care (01) ==
LOC: H.ER 19:52
DX: R07.9 Chest pain, unspecified (principal); I10 Essential (primary) hypertension; R07.89 Other chest pain; Z79.82 Long term (current) use of aspirin
CPT/HCPCS: 71046; 80053; 84484; 85025; 93005; 96374; 99284; J1885